=== PATIENT | male | born 1960 | race Caucasian/White ===

== ENCOUNTER 2021-10-15 11:30 | Outpatient (RCR) | payer OTHER, SELFPAY ==
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
[2021-10-04 14:07] VITALS: BMI 26.6
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
--- NOTE | 2021-10-04 17:59 | PC.NURSE ---
Case opened in treatment team
--- NOTE | 2021-10-14 12:04 | P.PNPSP_ITS ---
Subjective Subjective Date of Service: 10/14/21 Reason For Visit: depression Guardianship: No Medical Problems Affecting Mental Status: No Interim History: Describes mood as ?I am good ?. Continues with some dysphoric mood, states it is improving. Finding PHP groups helpful, refreshing memory of old coping skills, opportunity to practice them in groups. No reports of SI/HI/SIB, no safety concern. Content with current medication regimen, does not wish for any changes at this time. Medication Compliance: Yes Side effects from medications: No Attending Groups: Yes Review of Systems Acute medical concerns: No Medical Review of Systems: unchanged Review of Systems Review of Systems Yes all other systems are reviewed and are negative Constitutional: Reports no additional constitutional complaints Mental Status Exam Mental Status Exam Narrative: NAD. Sitting upright in chair, fully alert and attentive during interview. No perceptual disturbances noted. Patient Appearance: Well Grooomed and Appropriate Patient Orientation: Person, Place, Time and Situation Level of Consciousness: Appropriate Patient Behavior: Appropriate, Cooperative and Good Eye Contact Mood Description: Depressed (is lessening. ) Affect Description: Appropriate and Depressed Patient Cognition Impaired: No Ability to Follow Directions: Excellent Speech Pattern: Clear, Appropriate and Coherent Memory Description: Intact Hallucinations: None Delusions: Not Present Thought Process: Intact Thought Content: positive for Intact Depressive Symptoms: Loss of Int. in Activity, Isolating-Friends/Family, Feelings of Guilt and Unhappiness Judgement: Fair Diagnostics Vital Signs (24Hr): BMI result Body Mass Index 26.6 Assessment & Plan Assessment & Plan (1) Major depressive disorder, recurrent severe without psychotic features: Status: Acute Code(s): F33.2 - Major depressive disorder, recurrent severe without psychotic features Assessment and Plan: Reports overall feeling less depressed and anxious. Reports he is finding the groups in [facility] to be helpful. He is reduce covering coping skills, appreciate opportunity to practice them during groups. States that he finds being in partial comforting, as he is able to experience the feeling that he is not alone, and is able to share openly during groups. No SI/HI, no safety concerns at this time. He is content with current medication regimen, no changes. (2) FRANKIE (generalized anxiety disorder): Status: Acute Code(s): F41.1 - Generalized anxiety disorder Plan 1. Continue with current [facility] plan of care. 2. Continue with current medication regimen as prescribed by outpatient provider. 3. Follow-up as per protocol. Patient educated on: diagnosis, medication risk/benefits and therapeutic strategies Informed Consent: understands Reason for contiued partial hosp. stay Substantial Risk for: inability to function and med/psych decompensation Certification I certify that partial hospital treatment is medically necessary due to the symptoms and problems resulting from the patient's mental illness and the fa ilure to treat the patient at the partial hospital level of care would likely result in the patient requiring inpatient psychiatric care which could not be prevented at a less intensive level of care. I spent minutes with the patient and/or on the patient floor today, greater than?50% of which was spent counseling/coordinating care. Discharge Plan Discharge Attending provider: Sadi Ponce Medications: No Action fluoxetine [Prozac] 40 mg Capsule 40 mg PO DAILY 0RF lamotrigine [Lamictal] 200 mg Tablet 200 mg PO DAILY 0RF Rx Instructions: Take daily in AM lamotrigine [Lamictal] 200 mg Tablet 300 mg PO BEDTIME 0RF lorazepam 1 mg Tablet 1 mg PO DAILY PRN (Reason: Anxiety) 0RF zolpidem [Ambien] 10 mg Tablet 10 mg PO BEDTIME PRN (Reason: Sleep) 0RF topiramate 50 mg Tablet 50 mg PO BID 0RF quetiapine 25 mg Tablet 25 mg PO TID PRN (Reason: Anxiety) 0RF Label Comments: Patient reports Dr Goodman added Quetiapine 25 mg TID prn anxiety. Telehealth Telehealth Location of provider rendering services: practice address Location of patient: address on file Patient Identification confirmed using: Name, : Yes Telehealth method: video Patient verbally consented to treatment: Yes Patient verbally consented to billing insurance company: Yes Patient informed of any privacy concerns related to visit: Yes Minutes spent on Phone/Video with Pt.: 13
--- NOTE | 2021-10-15 14:15 | PC.NURSE ---
Filipe discharged today from the program. Stated he felt anxious however stated that is normal. Denied SI or thoughts to harm himself. Reviewed patient medications with patient. Patient reports taking medications as prescribed. Medication education provided.
== END 2021-10-15 23:59 | disposition home or self-care (01) ==
LOC: HO.PHPA 11:30
PROVIDERS: Visit Provider Psychiatry & Neurology Psychiatry
DX: F33.2 Major depressive disorder, recurrent severe without psychotic features (principal); F41.1 Generalized anxiety disorder; Z79.899 Other long term (current) drug therapy
CPT/HCPCS: 90791; 90853